=== PATIENT | male | born 1965 ===

== ENCOUNTER → 2018-07-11 | Outpatient (CLI) | payer OTHER ==
--- NOTE | 2018-07-12 12:46 | Pulmonary Function Test ---
Pulmonary Function Test Date of Procedure:: 07/12/18 INDICATION:: Dyspnea Referring Provider: Dr. Kevon Huang Lobbyist: Damari Ramsey, FURNITURE FINISHER, OCCUPATIONAL SAFETY AND HEALTH MANAGER - Report Spirometry: Spirometry: pre-FVC: 2.54 L 89% pre-FEV:1 3.55 L 86% pre-FEV1/FVC % 78 predicted 80 [id number]% 3.27 L 79% Diffusion Capactity: Diffusion Capacity: DLCO; 30.9 94% DLCO/VA; 5.28 130% Impression: Borderline obstructive ventilatory defect inferred by the decrease in flow FEV F 25-75%. Normal diffusion capacity.
== END ==
LOC: RT 13:25
DX: R06.02 Shortness of breath (principal)
CPT/HCPCS: 94010; 94729